=== PATIENT | male | born 1940 | race African-American/Black ===

== ENCOUNTER 2016-11-06 13:00 | Emergency (ER) | payer MEDICARE, OTHER ==
[~2016-11-06] VITALS: Ht 185.4 cm; Wt 91.0 kg
[~2016-11-06 13:00] MED LIST: ALLO300T2 PO; AMLO10TA4 PO; ATOR10TA PO; CETI10CA2 PO; FINA1TAB18 PO; MAX25 GT; RAMI10CA19 PO; TAMS-11 PO; VALS160T2 PO
[2016-11-06] MEDS ORDERED: IBUPROFEN 600MG TABLET PO ONE (15:00)
[2016-11-06] MEDS ORDERED: AMLODIPINE 5MG TABLET PO ONE (15:00)
[2016-11-06 15:48] VITALS: BP 165/85
== END 2016-11-06 16:01 | disposition home or self-care (01) ==
LOC: ER 15:33
DX: M54.9 Dorsalgia, unspecified (principal); I10 Essential (primary) hypertension
CPT/HCPCS: 71010; 93005; 99284

== ENCOUNTER → 2017-08-07 | Outpatient (CLI) | payer MEDICARE, OTHER | END | disposition home or self-care (01) | LOC: RAD 15:33 | PROVIDERS: ATTEND Internal Medicine | DX: D71 Functional disorders of polymorphonuclear neutrophils (principal); I10 Essential (primary) hypertension | CPT/HCPCS: 71046 ==

== ENCOUNTER 2018-03-11 12:02 | Emergency (ER) | payer MEDICARE, OTHER ==
[~2018-03-11] VITALS: Ht 185.4 cm; Wt 90.0 kg
[2018-03-11] MEDS ORDERED: SODIUM CHLORIDE 0.9% 1,000 ML IV ONE (13:11)
[2018-03-11 15:18] LABS: CHLORIDE 106 mEq/L (98-107)
[2018-03-11 15:22] LABS: BASOPHILS % 0.5 % (0.0-2.0); EOSINOPHILS % 0.5 % (0.0-5.0); HEMATOCRIT. 41.5 % (42.0-52.0); HEMOGLOBIN. 13.7 g/dL (14.0-18.0); LYMPHOCYTES % 13.7 % (20.0-50.0); MEAN CORPUSCULAR HEMOGLOBIN 28.2 pg (28.0-32.0); MEAN CORPUSCULAR VOLUME 85.3 fL (80.0-94.0); MONOCYTES % 7.6 % (2.0-8.0); NEUTROPHILS % 77.7 % (40.0-76.0); PLATELET 274 x1000/uL (130-400); RED BLOOD CELL COUNT 4.87 mill/uL (4.7-6.1); RED CELL DISTRIBUTION WIDTH 13.7 % (11.6-14.6)
[2018-03-11 16:48] VITALS: BP 153/63
== END 2018-03-11 16:48 | disposition home or self-care (01) ==
LOC: ER 12:53
DX: K59.00 Constipation, unspecified (principal); N28.9 Disorder of kidney and ureter, unspecified; E86.0 Dehydration; I10 Essential (primary) hypertension; Z98.890 Other specified postprocedural states
CPT/HCPCS: 36415; 74021; 80053; 83690; 85025; 99284; J7030

== ENCOUNTER 2021-07-10 20:52 | Emergency (ER) | payer MEDICARE, OTHER ==
[~2021-07-10] VITALS: Ht 185.4 cm; Wt 89.0 kg
[~2021-07-10 20:52] MED LIST changes: -RAMI10CA19 PO; +RAMI10CA68 PO
[2021-07-10 21:14] VITALS: BP 181/94
[2021-07-10] MEDS ORDERED: METHOCARBAMOL 500MG TABLET PO ONE (23:00)
[2021-07-10] MEDS ORDERED: METH-653 MT (23:08)
== END 2021-07-10 23:18 | disposition home or self-care (01) ==
LOC: ER 20:52
DX: M62.838 Other muscle spasm (principal); K21.9 Gastro-esophageal reflux disease without esophagitis; I10 Essential (primary) hypertension; Z79.899 Other long term (current) drug therapy
CPT/HCPCS: 99283

== ENCOUNTER 2024-03-08 18:03 | Emergency (ER) | payer MEDICARE, OTHER ==
[~2024-03-08] VITALS: Ht 185.4 cm; Wt 86.1 kg
[~2024-03-08 18:03] MED LIST changes: +APIX2.5T MT; +CARV12.545 PO; +CHOL400D7 PO; +DOCU100P MC; +FERR325T6 PO; +FINA1TAB14 PO; -FINA1TAB18 PO; +IRBE75TA16 PO; +METH-653 MT; +MINO10TA MT; +PANT40TA51 MT; -RAMI10CA68 PO; +RAMI10CA75 PO; +ZOLP5TAB8 MT
[2024-03-08 18:11] VITALS: BP 140/86; PULSE 64; RESP 16; O2SAT 98
[2024-03-09 01:23] LABS: CLARITY URINE CLEAR (CLEAR); COLOR URINE YELLOW (YELLOW)
[2024-03-09 01:24] LABS: GLUCOSE URINE NEGATIVE (NEGATIVE); PH URINE 5.5 (4.5-8.0); PROTEIN URINE 1+ (NEGATIVE); SPECIFIC GRAVITY URINE 1.035 (1.005-1.030)
[2024-03-09 01:25] LABS: KETONES URINE NEGATIVE (NEGATIVE); NITRITE URINE NEGATIVE (NEGATIVE); OCCULT BLOOD URINE NEGATIVE (NEGATIVE)
[2024-03-09 01:26] LABS: LEUKOCYTE ESTERASE URINE NEGATIVE (NEGATIVE)
[2024-03-09 01:41] LABS: RBC URINE 0-2 /hpf (0-2)
[2024-03-09 01:42] LABS: SQUAMOUS EPITHELIAL CELL URINE NONE SEEN /lpf (RARE/1+)
[2024-03-09 01:43] LABS: BACTERIA URINE NONE SEEN
[2024-03-09] MEDS ORDERED: TOPUD MT (01:50)
[2024-03-09 02:05] VITALS: TEMP 98.1
[2024-03-09] MEDS: ACETAMINOPHEN 325MG TABLET PO ONE (02:05)
[2024-03-09] MEDS: ACETAMINOPHEN 325MG TABLET PO NR (02:05)
== END 2024-03-09 02:39 | disposition home or self-care (01) ==
LOC: ER 18:03
DX: M25.552 Pain in left hip (principal); M54.50 Low back pain, unspecified; I10 Essential (primary) hypertension; Z98.890 Other specified postprocedural states; Z79.899 Other long term (current) drug therapy; Z85.46 Personal history of malignant neoplasm of prostate; Z79.01 Long term (current) use of anticoagulants
CPT/HCPCS: 72131; 72192; 73503; 81003; 99284